=== PATIENT | male | born 1970 | race African-American/Black ===

== ENCOUNTER 2019-02-10 17:46 | Emergency (ER) | payer OTHER ==
[2019-02-10] MEDS ORDERED: CLONIDINE HCL 0.2 MG TABLET PO ONE (18:13)
--- NOTE | 2019-02-10 18:13 | ER Document Report ---
ED Medical Screen (RME) - General Chief Complaint: Blood Pressure Problem Stated Complaint: BLOOD PRESSURE PROBLEMS Time Seen by Provider: 02/10/19 18:07 Primary Care Provider: MALACHI KRUGER MD [Primary Care Provider] - Follow up as needed - HPI Notes: 02/10/19 19:58 49-year-old male to the emergency department with complaints of elevated blood pressure. He states he is supposed to have a dental procedure today but his dentist found that he had a blood pressure of 230/1 100s. He states that he has no symptoms. He denies any headache, strokelike symptoms, focal neurological deficits, dysarthria, chest pain, shortness of breath. He states that there is a strong family history of hypertension but he has never been diagnosed with such. He denies any other complaints. I performed a brief medical screening exam on patient and determined that he will need further main side provider evaluation and management. Have gone ahead and ordered initial orders and initial dose of blood pressure medicine to aid in patient's expedited care. - Related Data Allergies/Adverse Reactions: No Known Allergies Allergy (Unverified 02/10/19 18:03) Physical Exam - Vital signs Vitals: BP 230/118 H 02/10/19 18:06 Course - Vital Signs Vital signs: Temp Pulse Resp BP Pulse Ox 98 F 76 23 H 231/125 H 99 02/10/19 18:07 02/10/19 18:07 02/10/19 19:16 02/10/19 19:16 02/10/19 19:16 - Laboratory Result Diagrams: 02/10/19 19:32 02/10/19 19:32 Doctor's Discharge - Discharge Referrals: MALACHI KRUGER MD [Primary Care Provider] - Follow up as needed
--- NOTE | 2019-02-10 19:05 | ER Document Report ---
ED General - General Chief Complaint: Blood Pressure Problem Stated Complaint: BLOOD PRESSURE PROBLEMS Time Seen by Provider: 02/10/19 18:07 Primary Care Provider: MALACHI KRUGER MD [Primary Care Provider] - 02/13/19 Notes: Patient is a 49-year-old male who presents emergency department with high blood pressure readings. Patient was seen yesterday at his dentist office and they took his blood pressure because he needed dental work done and his blood pressure was elevated. He was told to follow-up with a doctor. He followed up with [facility] in [facility] and was referred to the emergency department . Patient denies any headache, difficulty breathing, chest pain, dizziness, weakness, lightheadedness, or any other symptoms at this time. TRAVEL OUTSIDE OF THE [place] IN LAST 30 DAYS: No - Related Data Allergies/Adverse Reactions: No Known Allergies Allergy (Unverified 02/10/19 18:03) Past Medical History - Social History Smoking Status: Never Smoker Chew tobacco use (# tins/day): No Frequency of alcohol use: None Drug Abuse: None Family History: Hypertension Patient has suicidal ideation: No Patient has homicidal ideation: No Review of Systems - Review of Systems Notes: REVIEW OF SYSTEMS: CONSTITUTIONAL : Denies recent illness. Denies recent unintentional weight loss. Denies fever, chills, or sweats. EENT: Denies eye, ear, throat, or mouth pain, discharge, or symptoms. Denies nasal or sinus congestion. CARDIOVASCULAR: Denies chest pain. See HPI. RESPIRATORY: Denies shortness of breath, cough, congestion, difficulty peña athing, or wheezing. GASTROINTESTINAL: Denies nausea, vomiting, and diarrhea. Denies abdominal pain. Denies constipation. GENITOURINARY: Denies difficulty urinating, burning, blood in urine, urgency or frequency. MUSCULOSKELETAL: Denies neck and back pain. Denies joint pain or swelling. SKIN: Denies rash, itchiness, or lesions HEMATOLOGIC : Denies easy bruising or bleeding. LYMPHATIC: Denies swollen, painful, enlarged glands. NEUROLOGICAL: Denies no numbness or tingling denies weakness. Denies headache. Denies altered mental status. Denies alteration in speech. PSYCHIATRIC: Denies stress, anxiety, alteration in sleep patterns, or depression. All other systems reviewed and negative. Physical Exam - Vital signs Vitals: BP 230/118 H 02/10/19 18:06 - Notes Notes: PHYSICAL EXAMINATION: GENERAL: Appears well, healthy, well-nourished, no acute distress. HEAD: Normocephalic, atraumatic. EYES: PERRL, conjunctiva normal, all extraocular movements intact, sclera nonicteric ENT: Moist mucous membranes. NECK: Supple, no noticeable swelling, redness, rash. Normal range of motion. LUNGS: Equal breath sounds bilaterally and clear to auscultation. No wheezes rales or rhonchi. CARDIOVASCULAR: S1-S2, regular rate, regular rhythm. Radial pulses 2+, normal. ABDOMEN: Normoactive bowel sounds. Soft, nontender, no guarding, no rebound tenderness, and no masses palpated. EXTREMITIES: Normal strength and range of motion, no pitting or edema. No cyanosis. NEUROLOGICAL: Moves all extremities upon command. Strength 5/5 in all extremities. PSYCH: Normal mood, normal affect. SKIN: Warm, dry. No rash, lesions, ulcerations noted. Normal skin turgor. Course - Re-evaluation Re-evalutation: 02/10/19 20:47 Patient blood pressure has improved with the clonidine ordered in triage. Blood pressure is currently 179/98. Patient denies any pain, chest pain, dizziness, headache, or any other symptoms. Hematology and chemistries are unremarkable. Patient will follow-up with his primary care provider on Saturday. I have advised him that if his blood pressure is high on Saturday, to talk to his primary care about possibly being started on medication at that time, as the patient has had a high blood pressure here. He is in agreement with this plan. Follow-up precautions were given. Verbal discharge instructions were given to the patient. They verbalized understanding. They are stable for discharge. - Vital Signs Vital signs: Temp Pulse Resp BP Pulse Ox 98.1 F 76 18 179/107 H 98 02/10/19 21:07 02/10/19 18:07 02/10/19 21:01 02/10/19 21:01 02/10/19 21:01 - Laboratory Result Diagrams: 02/10/19 19:32 02/10/19 19:32 Laboratory results interpreted by me: 02/10/19 19:32 Hgb 12.8 L MCV 77 L MCH 24.7 L RDW 18.7 H - EKG Interpretation by Me Additional EKG results interpreted by me: 02/10/19 20:52 Sinus rhythm. Rate 70. SD 164; QRS 78; QT 396; QTc 428. No ST elevations or depressions noted. Left ventricular hypertrophy noted. Discharge - Discharge Clinical Impression: High blood pressure Qualifiers: Hypertension type: unspecified Qualified Code(s): I10 - Essential (primary) hypertension Condition: Stable Disposition: HOME, SELF-CARE Additional Instructions: You were seen today in the emergency department for high blood pressure readings. Your blood pressure came down with clonidine here in the emergency department. Your labs are normal. Please have your primary care provider recheck your blood pressure on Saturday. If it is high again, see if he can be started on blood pressure medication. If you develop worse headache of your life, have numbness or tingling, pass out, have chest pain, shortness of breath or difficulty breathing, or have any symptoms that are worrisome to you, please return to the emergency department. Forms: Return to Work Referrals: MALACHI KRUGER MD [Primary Care Provider] - 02/13/19
[2019-02-10 19:58] LABS: ABSOLUTE EOSINOPHILS # (AUTO) 0.1 10^3/uL (0.0-0.6); ABSOLUTE MONOCYTES (AUTO) 0.5 10^3/uL (0.1-1.4); LYMPHOCYTES % (AUTO) 35.2 % (13-45); MEAN CORPUSCULAR HEMOGLOBIN 24.7 pg (27.0-33.4); TOTAL CELLS COUNTED % (AUTO) 100 %
[2019-02-10 20:07] LABS: ABSOLUTE LYMPHOCYTES (AUTO) 1.6 10^3/uL (0.5-4.7); ABSOLUTE NEUT (AUTO) 2.3 10^3/uL (1.7-8.2); BASOPHILS % (AUTO) 0.8 % (0-2); EOSINOPHILS % (AUTO) 2.1 % (0-6); HEMATOCRIT 40.1 % (37.9-51.0); HEMOGLOBIN 12.8 g/dL (13.5-17.0); MEAN CORPUSCULAR VOLUME 77 fl (80-97); MONOCYTES % (AUTO) 11.1 % (3-13); PLATELET COUNT 197 10^3/uL (150-450); RED BLOOD COUNT 5.19 10^6/uL (4.35-5.55); RED CELL DISTRIBUTION WIDTH 18.7 % (11.5-14.0); SEGMENTED NEUTROPHILS % (AUTO) 50.8 % (42-78); WHITE BLOOD COUNT 4.4 10^3/uL (4.0-10.5)
[2019-02-10 20:08] LABS: ALBUMIN 4.6 g/dL (3.5-5.0); ALKALINE PHOSPHATASE 93 U/L (38-126); ANION GAP 8 (5-19); ASPARTATE AMINO TRANSFERASE 29 U/L (17-59); BILIRUBIN,DIRECT 0.2 mg/dL (0.0-0.4); BILIRUBIN,TOTAL 0.5 mg/dL (0.2-1.3); BLOOD UREA NITROGEN 12 mg/dL (7-20); CALCIUM 9.9 mg/dL (8.4-10.2); CARBON DIOXIDE 27 mmol/L (22-30); CHLORIDE 104 mmol/L (98-107); GLUCOSE 87 mg/dL (75-110); POTASSIUM 4.4 mmol/L (3.6-5.0); TOTAL PROTEIN 7.8 g/dL (6.3-8.2)
[2019-02-10 21:04] VITALS: BP 179/107
--- NOTE | 2019-02-11 00:31 | EKG REPORT ---
SEVERITY:- BORDERLINE ECG - SINUS RHYTHM LVH BY VOLTAGE ANTERIOR ST ELEVATION, PROBABLY DUE TO LVH : Confirmed by: Dorys Lennon MD 11-Feb-2019 00:30:26
== END 2019-02-10 21:10 | disposition home or self-care (01) ==
LOC: ER 17:46
DX: I10 Essential (primary) hypertension (principal)
CPT/HCPCS: 36415; 80053; 85025; 93005; 93010; 99283